=== PATIENT | female | born 1965 | race Caucasian/White ===

== ENCOUNTER 2022-08-12 07:39 | Day surgery (SDC) | payer BC ==
[2022-08-11 10:46] VITALS: BMI 24.3
[~2022-08-12 07:39] MED LIST: Fluorouracil 100 MG, Enoxaparin Sodium 25 MG, EPINEPHrine 0.3 MG in Ophthalmic Irrigati... IRR SCH
[2022-08-12] MEDS ORDERED: Phenylephrine 2.5% Ophth Soln 5 ML BOT ONE (08:12)
[2022-08-12] MEDS ORDERED: Cyclopentolate 1% Opth Drop 2 ML BOT ONE (08:12)
[2022-08-12] MEDS ORDERED: Enoxaparin Sodium 30 MG/0.3 ML SYRINGE ONE (09:51)
[2022-08-12] MEDS ORDERED: Indocyanine Green 25 MG/10 ML VIAL ONE (09:51)
[2022-08-12] MEDS ORDERED: Lidocaine 4% PF 5 ML AMP ONE (09:51)
[2022-08-12] MEDS ORDERED: CEFAZOLIN 1 GM VIAL ONE (09:51)
[2022-08-12] MEDS ORDERED: Lidocaine 1% PF 5 ML VIAL ONE (09:51)
[2022-08-12] MEDS ORDERED: Maxitrol 0.1% Opth Oint 3.5 GM TUBE ONE (09:51)
[2022-08-12] MEDS ORDERED: Bupivacaine 0.75% 10 ML VIAL ONE (09:51)
[2022-08-12] MEDS ORDERED: PROPOFOL 200 MG/20 ML VIAL ONE (09:51)
[2022-08-12] MEDS ORDERED: Triamcinolone 40 MG/ML VIAL ONE (09:51)
== END 2022-08-12 11:35 | disposition home or self-care (01) ==
LOC: SDC 07:39
PROVIDERS: ATTEND Ophthalmology Retina Specialist
PROC: 08B43ZZ Excision of Right Vitreous, Percutaneous Approach (ICD-10-PCS; principal; 2022-08-12)
DX: H35.341 Macular cyst, hole, or pseudohole, right eye (principal)
CPT/HCPCS: 67025; J0171; J0690; J1650; J2704; J3301; J3490; J9190